=== PATIENT | male | born 1955 | race Caucasian/White ===

== ENCOUNTER 2017-06-06 14:02 | Emergency (ER) | payer BC ==
[2017-06-06 14:48] VITALS: BP 129/80
--- NOTE | 2017-06-06 14:56 | UC ---
Laceration HPI - HPI Summary HPI Summary: 61 year old male presents with left thumb abrasion/laceration secondary to a table saw. - History Of Current Complaint Chief Complaint: UCLaceration Stated Complaint: LFT HAND THUMB LAC Time Seen by Provider: 06/06/17 14:55 Hx Obtained From: Patient Laceration Location: Hand - left thumb Onset/Duration: Sudden Onset Pain Scale Used: 0-10 Numeric - 2 Aggravating Factors: Nothing - Allergies/Home Medications Allergies/Adverse Reactions: Allergies Allergy/AdvReac Type Severity Reaction Status Date / Time No Known Allergies Allergy Verified 06/06/17 14:48 Home Medications: Home Medications Lisinopril TAB* [Prinivil TAB*] 20 mg PO DAILY 06/06/17 [History Confirmed 06/06] Tadalafil [Cialis] 5 mg PO DAILY 06/06/17 [History Confirmed 06/06/17] PMH/Surg Hx/FS Hx/Imm Hx Previously Healthy: Yes - Surgical History Surgical History: Yes Surgery Procedure, Year, and Place: lower back - Family History Known Family History: Positive: None - Social History Alcohol Use: Rare Substance Use Type: None Smoking Status (MU): Never Smoked Tobacco Review of Systems Constitutional: Negative Skin: Other - left thumb laceration/abrasion Eyes: Negative ENT: Negative Respiratory: Negative Cardiovascular: Negative Gastrointestinal: Negative Genitourinary: Negative Motor: Negative Neurovascular: Negative Musculoskeletal: Negative Neurological: Negative Psychological: Negative All Other Systems Reviewed And Are Negative: Yes Physical Exam Triage Information Reviewed: Yes Vital Signs: Initial Vital Signs Temp 37.2 C 06/06/17 14:43 Pulse 88 06/06/17 14:43 Resp 16 06/06/17 14:43 BP 129/80 06/06/17 14:43 Pulse Ox 97 06/06/17 14:43 Laceration Course/Dx - Differential Dx - Laceration/Wound Provider Diagnoses: left thumb laceration/abrasion Discharge - Discharge Plan Condition: Stable Disposition: HOME Prescriptions: DOXYcycline CAP(*) [DOXYcycline 100MG CAP(*)] 100 mg PO BID #14 cap Patient Education Materials: Laceration (ED) Referrals: [facility] [Primary Care Provider] - Additional Instructions: f/u 48 hours for wound check
[2017-06-06] MEDS ORDERED: Tetan/Diph/Pertus SYR(Tdap)* 0.5 ML SYR(BOOSTRIX) use SYR IM ONE (15:07)
== END 2017-06-06 15:25 | disposition home or self-care (01) ==
LOC: UCCORT 14:02
DX: S61.012A Laceration without foreign body of left thumb without damage to nail, initial encounter (principal); W31.2XXA Contact with powered woodworking and forming machines, initial encounter; Y93.9 Activity, unspecified; Y92.9 Unspecified place or not applicable
CPT/HCPCS: 90471; 90715; 99202; G0463

== ENCOUNTER 2018-10-19 07:01 | Emergency (ER) | payer BC ==
[2018-10-19 07:18] VITALS: BP 156/78
[2018-10-19] MEDS ORDERED: Cephalexin CAP* 500 MG PO ONE (07:25)
--- NOTE | 2018-10-19 07:30 | UC ---
Hand/Wrist HPI - HPI Summary HPI Summary: 62 yo male was using a grinder tender on a pipe. 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 He cleaned and dressed the injury. The past day has resulted in increased pain and swelling. He is worried about infection. Pain with bending or touch. He is right handed and his tetanus is up to date. - History Of Current Complaint Chief Complaint: UCGeneralIllness Stated Complaint: LEFT HAND INJURY Time Seen by Provider: 10/19/18 07:19 Hx Obtained From: Patient Onset/Duration: Sudden Onset, Lasting Days Severity Initially: Moderate Severity Currently: Mild Pain Intensity: 2 Pain Scale Used: 0-10 Numeric Character Of Pain: Dull, Aching Aggravating Factor(s): Movement Alleviating Factor(s): Rest Associated Signs And Symptoms: Positive: Swelling Related History: Dominant Hand Right Hands: 1 - flap lac 1.8 cm long 2 - dorsal hand edema - Allergies/Home Medications Allergies/Adverse Reactions: Allergies Allergy/AdvReac Type Severity Reaction Status Date / Time No Known Allergies Allergy Verified 10/19/18 07:19 Home Medications: Home Medications Ibuprofen [Advil] 400 mg PO ONCE 10/19/18 [History Confirmed 10/19/18] PMH/Surg Hx/FS Hx/Imm Hx Previously Healthy: Yes Cardiovascular History: Hypertension - Surgical History Surgical History: Yes Surgery Procedure, Year, and Place: spinal fusion lower back - Family History Known Family History: Positive: Hypertension - Social History Alcohol Use: Rare Substance Use Type: None Smoking Status (MU): Never Smoked Tobacco Review of Systems All Other Systems Reviewed And Are Negative: Yes Constitutional: Positive: Negative Skin: Positive: Negative Eyes: Positive: Negative ENT: Positive: Negative Respiratory: Positive: Negative Cardiovascular: Positive: Negative Gastrointestinal: Positive: Negative Genitourinary: Positive: Negative Motor: Positive: Negative Neurovascular: Positive: Negative Musculoskeletal: Positive: Arthralgia - L IF PIP Neurological: Positive: Negative Psychological: Positive: Negative Physical Exam Triage Information Reviewed: Yes Appearance: Well-Appearing, No Pain Distress, Well-Nourished Vital Signs: Initial Vital Signs Temp 97.3 F 10/19/18 07:13 Pulse 72 10/19/18 07:13 Resp 16 10/19/18 07:13 BP 156/78 10/19/18 07:13 Pulse Ox 99 10/19/18 07:13 Vital Signs Reviewed: Yes Eyes: Positive: Conjunctiva Clear ENT: Positive: Hearing grossly normal. Negative: Nasal congestion, Nasal drainage, Trismus, Muffled voice, Hoarse voice Dental Exam: Normal Neck: Positive: Supple Respiratory: Positive: Lungs clear, Normal breath sounds, No respiratory distress, No accessory muscle use Cardiovascular: Positive: RRR, No Murmur Musculoskeletal: Positive: ROM Intact, No Edema Neurological: Positive: Alert Psychological Exam: Normal Skin Exam: Normal Diagnostics - Radiology No standard instances Radiology Interpretation Completed By: Radiologist Summary of Radiographic Findings: no fx Hand/Wrist Course/Dx - Differential Dx/Diagnosis Provider Diagnosis: Laceration of left index finger, Hand contusion Discharge - Sign-Out/Discharge Documenting (check all that apply): Patient Departure All imaging exams completed and their final reports reviewed: Yes - Discharge Plan Condition: Stable Disposition: HOME Prescriptions: Cephalexin CAP* [Keflex CAP*] 500 mg PO QID #28 cap Patient Education Materials: Laceration Without Closure (ED) Referrals: [facility] [[email or web address], APPLICATION, OTHER] - 4 Days (if not improved) Additional Instructions: gently clean twice daily with soap and water gently dry apply thin film of antibiotic ointment dressing wear splint while working take antibiotic as directed - Billing Disposition and Condition Condition: STABLE Disposition: Home
== END 2018-10-19 08:09 | disposition home or self-care (01) ==
LOC: UCCORT 07:01
DX: S61.211A Laceration without foreign body of left index finger without damage to nail, initial encounter (principal); S60.222A Contusion of left hand, initial encounter; W31.89XA Contact with other specified machinery, initial encounter; Y92.9 Unspecified place or not applicable
CPT/HCPCS: 73140; 99213; A9270-GY; G0463